=== PATIENT | male | born 1985 | race Hispanic/Latino ===

== ENCOUNTER 2018-05-04 00:44 | Emergency (ER) | payer SELFPAY ==
[2018-05-04 01:06] VITALS: O2SAT 98
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
[2018-05-04 06:47] VITALS: BP 126/70; PULSE 76; RESP 16; TEMP 98.6
== END 2018-05-04 06:30 | disposition home or self-care (01) ==
LOC: H.ER 00:44
DX: F43.10 Post-traumatic stress disorder, unspecified (principal)